=== PATIENT | female | born 1985 | race Caucasian/White ===

== ENCOUNTER 2017-11-14 18:19 | Emergency (ER) | payer OTHER ==
[~2017-11-14] VITALS: Ht 160 cm; Wt 54.4 kg
== END 2017-11-14 20:46 | disposition home or self-care (01) ==
LOC: ER 18:19
DX: L57.8 Other skin changes due to chronic exposure to nonionizing radiation (principal); L03.211 Cellulitis of face; X32.XXXA Exposure to sunlight, initial encounter; Y93.89 Activity, other specified; Y92.488 Other paved roadways as the place of occurrence of the external cause; Y99.8 Other external cause status